=== PATIENT | female | born 1965 | race Hispanic/Latino ===

== ENCOUNTER 2022-02-22 09:28 | Outpatient (CLI) | payer OTHER | END 2022-02-22 09:29 | disposition home or self-care (01) | LOC: BICULT 09:28 | PROVIDERS: ATTEND Student in an Organized Health Care Education/Training Program | DX: R10.13 Epigastric pain (principal) | CPT/HCPCS: 76700 ==

== ENCOUNTER 2022-04-26 12:56 | Outpatient (CLI) | payer MEDICARE | END 2022-04-26 12:57 | disposition home or self-care (01) | LOC: LABBT 12:56 | PROVIDERS: ATTEND Ophthalmology Retina Specialist | DX: H35.61 Retinal hemorrhage, right eye (principal); H54.7 Unspecified visual loss; Z20.822 Contact with and (suspected) exposure to COVID-19 | CPT/HCPCS: 87811 ==

== ENCOUNTER 2022-05-09 15:59 | Emergency (ER) | payer MEDICARE, OTHER ==
[2022-05-09] MEDS ORDERED: Ondansetron PF 4 MG/2 ML Vial ONE (16:24)
[2022-05-09 16:46] LABS: #Eosinphils 0.1 thou/uL (0.0-0.7); #Lymphocytes 2.6 thou/uL (1.20-3.40); #Monocytes 1.1 thou/uL (0.11-0.59); #Neutrophils 7.2 thou/uL (1.40-6.50); %Basophils 0.3 % (0.0-1.0); %Eosinophils 0.8 % (0.0-10.0); %Lymphocytes 23.8 % (21.0-51.0); %Monocytes 9.5 % (0.0-10.0); %Neutrophils 65.5 % (42.0-75.0); Hemoglobin 16.4 g/dL (12.0-16.0); Mean Corpuscular HGB CONC 33.7 g/dL (32.0-36.0); Mean Corpuscular Hemoglobin 30.8 pg (27.0-31.0); Mean Corpuscular Volume 91.5 fL (78.0-98.0); Mean Platelet Volume 6.7 fL (7.4-10.4); Platelet Count 248 thou/uL (130-400); RBC Distribution Width 13.2 % (11.5-14.5); Red Blood Cell (RBC) Count 5.32 mill/uL (4.20-5.40)
[2022-05-09 17:06] LABS: ALT (SGPT) 68 U/L (8-55); AST (SGOT) 59 U/L (5-34); Albumin 4.9 g/dL (3.5-5.0); Alkaline Phosphatase 89 U/L (40-110); Anion Gap 14 mmol/L (10-20); BUN (Urea Nitrogen) 10 mg/dL (9.8-20.1); Bilirubin, Total 0.7 mg/dL (0.2-1.2); Calc. Creatinine Clearance 0 mL/min (70-130); Calcium 9.8 mg/dL (7.8-10.44); Carbon Dioxide 24 mmol/L (22-29); Chloride 102 mmol/L (98-107); Estimated GFR 95; Globulin 3.4 g/dL (2.4-3.5); Glucose 109 mg/dL (70-105); Lipase 45 U/L (8-78); Potassium 3.4 mmol/L (3.5-5.1); Protein, Total 8.3 g/dL (6.0-8.3); Sodium 137 mmol/L (136-145)
[2022-05-09] MEDS ORDERED: Ketorolac Tromethamine 30 MG/ML VIAL ONE (17:06)
[2022-05-09] MEDS ORDERED: diphenhydrAMINE 50 MG/ML VIAL ONE (17:06)
[2022-05-09] MEDS ORDERED: Prochlorperazine 10 MG/2 ML VIAL ONE (17:07)
[2022-05-09 17:13] LABS: Bacteria/HPF 1+ HPF (None Seen); Bilirubin Negative (Negative); Blood, Urine Negative (Negative); Clarity Clear (Clear); Glucose, Urine (Dipstick) Normal (Negative); Ketone, Urine Negative (Negative); Leukocyte 500 Leu/uL (Negative); Nitrite Negative (Negative); Protein, Urine (Dipstick) 10 mg/dL (Neg-Trace); RBC/HPF 0-3 HPF (0-3); Specific Gravity, Urine 1.019 (1.002-1.036); Squamous Epithelial 0-3 HPF (0-3); Transitional Epithelial 0-3 HPF (None Seen); Urobilinogen Normal mg/dL (Less than 2); WBC/HPF 21-50 HPF (0-3); pH, Urine 5.5 (5.0-9.0)
[2022-05-09 17:43] LABS: SARS-CoV-2 NAA Rapid Test Not Detected (NotDetected)
== END 2022-05-09 18:28 | disposition home or self-care (01) ==
LOC: ERS 15:59
DX: N10 Acute pyelonephritis (principal); R51.9 Headache, unspecified; E03.9 Hypothyroidism, unspecified; K21.9 Gastro-esophageal reflux disease without esophagitis; I10 Essential (primary) hypertension; Z79.899 Other long term (current) drug therapy; Z20.822 Contact with and (suspected) exposure to COVID-19
CPT/HCPCS: 70450; 71045; 80053; 81003; 81015; 83690; 84484; 85025; 87086; 93005; 96361; 96374; 96375; J0780; J1200; J1885; J2405; U0002

== ENCOUNTER 2022-05-24 11:47 | Outpatient (CLI) | payer OTHER | END 2022-05-24 11:48 | disposition home or self-care (01) | LOC: LABBT 11:47 | PROVIDERS: ATTEND Ophthalmology Retina Specialist | DX: Z20.822 Contact with and (suspected) exposure to COVID-19 (principal) | CPT/HCPCS: 87811 ==

== ENCOUNTER 2022-05-25 09:50 | Day surgery (SDC) | payer OTHER ==
[2022-05-24 11:38] VITALS: BMI 25.0
[~2022-05-25 09:50] MED LIST: EPINEPHrine 0.3 MG in Ophthalmic Irrigation Solution 500 ML IRR SCH; Famotidine/PF 20 mg/2ml Vial ONE; fentaNYL Citrate/PF 100 MCG/2 ML SYRINGE ONE
[2022-05-25] MEDS ORDERED: Cyclopentolate 1% Opth Drop 2 ML BOT ONE (10:21)
[2022-05-25] MEDS ORDERED: Phenylephrine 2.5% Ophth Soln 5 ML BOT ONE (10:21)
[2022-05-25] MEDS ORDERED: Lidocaine 1% MPF 2 ML VIAL ONE (11:36)
[2022-05-25] MEDS ORDERED: Lidocaine 4% PF 5 ML AMP ONE (11:36)
[2022-05-25] MEDS ORDERED: PROPOFOL 200 MG/20 ML VIAL ONE (11:36)
[2022-05-25] MEDS ORDERED: Maxitrol 0.1% Opth Oint 3.5 GM TUBE ONE (11:36)
[2022-05-25] MEDS ORDERED: Bupivacaine 0.75% 10 ML VIAL ONE (11:36)
[2022-05-25] MEDS ORDERED: Glycopyrrolate 0.2 MG/ML 5 ML SYRINGE ONE (11:36)
[2022-05-25] MEDS ORDERED: Phenylephrine 10 MG/ML VIAL ONE (11:36)
[2022-05-25] MEDS ORDERED: Metoclopramide HCl 10 MG/2 ML VIAL ONE (11:36)
[2022-05-25] MEDS ORDERED: Ondansetron PF 4 MG/2 ML Vial ONE (11:36)
== END 2022-05-25 13:35 | disposition home or self-care (01) ==
LOC: SDC 09:50
PROVIDERS: ATTEND Ophthalmology Retina Specialist
PROC: [UNRECOGNIZED PROCEDURE] (principal; 2022-05-25)
PROC: 08T53ZZ Resection of Left Vitreous, Percutaneous Approach (ICD-10-PCS; principal; 2022-05-25)
DX: H40.832 Aqueous misdirection, left eye (principal); Z79.899 Other long term (current) drug therapy; Z88.0 Allergy status to penicillin
CPT/HCPCS: J0171; J2370; J2405; J2704; J2765; J3490; S0028

== ENCOUNTER 2022-06-16 08:48 | Outpatient (CLI) | payer OTHER | END 2022-06-16 08:49 | disposition home or self-care (01) | LOC: RAD 08:48 | PROVIDERS: ATTEND Internal Medicine Pulmonary Disease | DX: M34.9 Systemic sclerosis, unspecified (principal) | CPT/HCPCS: 71046 ==

== ENCOUNTER 2022-08-11 15:47 | Outpatient (CLI) | payer OTHER | END 2022-08-11 15:48 | disposition home or self-care (01) | LOC: BICMAMMO 15:47 | PROVIDERS: ATTEND Student in an Organized Health Care Education/Training Program | DX: Z12.31 Encounter for screening mammogram for malignant neoplasm of breast (principal) | CPT/HCPCS: 77063; 77067 ==